=== PATIENT | male | born 1985 | race Caucasian/White ===

== ENCOUNTER 2018-01-04 20:24 | Emergency (ER) | payer SELFPAY ==
[2018-01-04] MEDS ORDERED: PREDNISONE 20 MG TABLET PO ONE (22:30)
[2018-01-04] MEDS ORDERED: AZITHROMYCIN 250 MG TABLET PO ONE (22:30)
--- NOTE | 2018-01-04 22:32 | ER Document Report ---
ED General - General Chief Complaint: Sinus Congestion Stated Complaint: SINUS INFECTION Time Seen by Provider: 01/04/18 22:00 TRAVEL OUTSIDE OF THE [place] IN LAST 30 DAYS: No - HPI Patient complains to provider of: Sinus pressure congestion cough Notes: Patient coming in with a 3-4 day history of depressive symptoms. Patient recently traveled to [place] and was exposed to his father had similar symptoms. States father improved with [id number] medications for no improvement with his symptoms. Patient denies any recent antibiotics other than traveling to [place] no other travel. Other than being around his father no sick contacts. Patient denies any other health issues. Patient with a dry cough no production. No nausea no vomiting or diarrhea no chest pain no abdominal pain patient states diffuse pressure especially on the right side of his face and the right ear - Related Data Allergies/Adverse Reactions: codeine Allergy (Verified 01/04/18 21:26) Sulfa (Sulfonamide Antibiotics) Allergy (Verified 01/04/18 21:26) Past Medical History - Social History Smoking Status: Never Smoker Chew tobacco use (# tins/day): No Frequency of alcohol use: Social Drug Abuse: None Family History: Reviewed & Not Pertinent Patient has suicidal ideation: No Patient has homicidal ideation: No Renal/ Medical History: Denies: Hx Peritoneal Dialysis Review of Systems - Review of Systems EENT: Ear pain, Sinus pressure Cardiovascular: No symptoms reported Respiratory: Cough Gastrointestinal: No symptoms reported Genitourinary: No symptoms reported Male Genitourinary: No symptoms reported Musculoskeletal: No symptoms reported Skin: No symptoms reported Hematologic/Lymphatic: No symptoms reported Neurological/Psychological: No symptoms reported -: Yes All other systems reviewed and negative Physical Exam - Vital signs Vitals: Temp Pulse BP Pulse Ox 99.6 F 108 H 124/82 98 01/04/18 20:41 01/04/18 20:41 01/04/18 20:41 01/04/18 20:41 Interpretation: Normal - General General appearance: Appears well, Alert - HEENT Head: Normocephalic, Atraumatic Eyes: Normal Conjunctiva: Normal Cornea: Normal Extraocular movements intact: Yes Pupils: PERRL Ears: Normal External canal: Normal Tympanic membrane: Retracted - Right TM retracted left normal Sinus: Other - Tenderness palpation of the right frontal Nasal: Normal Pharynx: Post nasal drainage Neck: Normal - Respiratory Respiratory status: No respiratory distress Chest status: Nontender Breath sounds: Normal Chest palpation: Normal - Cardiovascular Rhythm: Regular Heart sounds: Normal auscultation Murmur: No - Abdominal Inspection: Normal Distension: No distension Bowel sounds: Normal Tenderness: Nontender Organomegaly: No organomegaly - Back Back: Normal, Nontender - Extremities General upper extremity: Normal inspection, Nontender, Normal color, Normal ROM , Normal temperature General lower extremity: Normal inspection, Nontender, Normal color, Normal ROM , Normal temperature, Normal weight bearing. No: Madelaine's sign - Neurological Neuro grossly intact: Yes Cognition: Normal Orientation: AAOx4 [place] Coma Scale Eye Opening: Spontaneous [place] Coma Scale Verbal: Oriented Lu Coma Scale Motor: Obeys Commands [place] Coma Scale Total: 15 Speech: Normal Motor strength normal: LUE, RUE, LLE, RLE Sensory: Normal - Psychological Associated symptoms: Normal affect, Normal mood - Skin Skin Temperature: Warm Skin Moisture: Dry Skin Color: Normal Course - Re-evaluation Re-evalutation: 01/05/18 00:35 Patient symptoms are consistent with sinusitis infection. Patient recommended to take being will start patient on Z-Martir also treat patient with steroids. Patient was also encouraged to use honey for his cough. Patient states understanding will be discharged home - Vital Signs Vital signs: Temp Pulse Resp BP Pulse Ox 99.9 F 104 H 20 130/85 H 97 01/04/18 22:42 01/04/18 22:42 01/04/18 22:42 01/04/18 22:42 01/04/18 22:42 Discharge - Discharge Clinical Impression: Sinusitis Qualifiers: Sinusitis location: unspecified location Chronicity: acute Recurrence: not specified as recurrent Qualified Code(s): J01.90 - Acute sinusitis, unspecified Condition: Good Disposition: HOME, SELF-CARE Instructions: Sinusitis (OM) Additional Instructions: Examination is consistent with a sinus infection and sinusitis. Will recommend taking aortic counter allergy medication such as Claritin or Zyrtec. 2 about your cough will recommend using natural honey mixed in your favorite drink. We will treat her infection with antibiotic because Zithromax take as directed. We also withdrew congestion with a low dose of steroids for the next few days. Follow-up with her primary care physician return to the ER symptoms worsen. Prescriptions: Azithromycin 250 mg PO DAILY #4 tablet Prednisone [Deltasone 20 mg Tablet] 3 tab PO DAILY 5 Days tablet
[2018-01-04 22:48] VITALS: BP 130/85
== END 2018-01-04 22:48 | disposition home or self-care (01) ==
LOC: ER 20:24
DX: J01.90 Acute sinusitis, unspecified (principal); R05 Cough; H92.09 Otalgia, unspecified ear; R09.82 Postnasal drip; Z88.5 Allergy status to narcotic agent; Z88.2 Allergy status to sulfonamides
CPT/HCPCS: 99283; J7512

== ENCOUNTER 2019-08-06 12:36 | Emergency (ER) | payer BC ==
[2019-08-06 12:51] VITALS: BP 144/88
--- NOTE | 2019-08-06 12:52 | ER Document Report ---
ED ENT - General Chief Complaint: Sinus Pain Stated Complaint: SINUS PAIN Time Seen by Provider: 08/06/19 12:46 Primary Care Provider: ADDIE OLSON PA-C [Primary Care Provider] - Follow up as needed Mode of Arrival: Ambulatory Notes: 34-year-old male presented to ED for complaint of cough congestion sinus pressure intermittent ear pressure since the first of the month which is about 9 days ago. He is alert oriented respirations regular nonlabored speaking in full sentences. He is afebrile at this time. He states he has not had a fever. TRAVEL OUTSIDE OF THE [place] IN LAST 30 DAYS: No - HPI Patient complains to provider of: Ear problem, Nose problem, Throat problem Onset: Other - Last 9 days Quality of pain: Achy Severity: Moderate Pain Level: 2 Context: Recent Illness Location of pain: Ears, Nose, Sinus, Throat Associated symptoms: Ear pain, Runny nose, Sinus pain, Sinus drainage, Sore throat Similar symptoms previously: Yes Recently seen / treated by doctor: No - Related Data Allergies/Adverse Reactions: codeine Allergy (Verified 08/06/19 12:46) Sulfa (Sulfonamide Antibiotics) Allergy (Verified 08/06/19 12:46) Past Medical History - General Information source: Patient - Social History Smoking Status: Never Smoker Frequency of alcohol use: Social Drug Abuse: None Lives with: Family Family History: Reviewed & Not Pertinent Patient has suicidal ideation: No Patient has homicidal ideation: No - Past Medical History Cardiac Medical History: Reports: None Pulmonary Medical History: Reports: None EENT Medical History: Reports: None Neurological Medical History: Reports: None Endocrine Medical History: Reports: None Renal/ Medical History: Reports: None Malignancy Medical History: Reports None GI Medical History: Reports: None Musculoskeletal Medical History: Reports None Skin Medical History: Reports None Psychiatric Medical History: Reports: None Traumatic Medical History: Reports: None Infectious Medical History: Reports: None Surgical Hx: Negative Past Surgical History: Reports: None - Immunizations Immunizations up to date: Yes Hx Diphtheria, Pertussis, Tetanus Vaccination: Yes Review of Systems - Review of Systems Constitutional: No symptoms reported EENT: Ear pain, Nose discharge, Sinus discharge, Throat pain Cardiovascular: No symptoms reported Respiratory: No symptoms reported Gastrointestinal: No symptoms reported Genitourinary: No symptoms reported Male Genitourinary: No symptoms reported Musculoskeletal: No symptoms reported Skin: No symptoms reported Hematologic/Lymphatic: No symptoms reported Neurological/Psychological: No symptoms reported -: Yes All other systems reviewed and negative Physical Exam - Vital signs Vitals: Temp Pulse Resp BP Pulse Ox 98.0 F 87 16 148/97 H 97 08/06/19 12:41 08/06/19 12:41 08/06/19 12:41 08/06/19 12:41 08/06/19 12:41 Interpretation: Normal - General General appearance: Appears well, Alert - HEENT Head: Normocephalic, Atraumatic Eyes: Normal Pupils: PERRL Ears: Normal External canal: Normal Tympanic membrane: Normal Sinus: Normal Nasal: Purulent discharge, Swelling Pharynx: Post nasal drainage. No: Erythema, Exudate Neck: Normal - Respiratory Respiratory status: No respiratory distress Chest status: Nontender Breath sounds: Nonproductive cough Chest palpation: Normal - Cardiovascular Rhythm: Regular Heart sounds: Normal auscultation Murmur: No - Abdominal Inspection: Normal Distension: No distension Bowel sounds: Normal Tenderness: Nontender Organomegaly: No organomegaly - Back Back: Normal, Nontender - Extremities General upper extremity: Normal inspection, Nontender, Normal color, Normal ROM, Normal temperature General lower extremity: Normal inspection, Nontender, Normal color, Normal ROM, Normal temperature, Normal weight bearing. No: Madelaine's sign - Neurological Neuro grossly intact: Yes Cognition: Normal Orientation: AAOx4 Lu Coma Scale Eye Opening: Spontaneous [place] Coma Scale Verbal: Oriented [place] Coma Scale Motor: Obeys Commands Lu Coma Scale Total: 15 Speech: Normal Motor strength normal: LUE, RUE, LLE, RLE Sensory: Normal - Psychological Associated symptoms: Normal affect, Normal mood - Skin Skin Temperature: Warm Skin Moisture: Dry Skin Color: Normal Course - Re-evaluation Re-evalutation: 08/06/19 22:05 After performing a Medical Screening Examination, I estimate there is LOW risk for ACUTE CORONARY SYNDROME, RESPIRATORY FAILURE, SEPSIS OR MENINGITIS, thus I consider the discharge disposition reasonable. I have reevaluated this patient multiple times and no significant life threatening changes are noted. The patient and I have discussed the diagnosis and risks, and we agree with discharging home with close follow-up. We also discussed returning to the Emergency Department immediately if new or worsening symptoms occur. We have discussed the symptoms which are most concerning (e.g., changing or worsening pain, trouble swallowing or breathing, neck stiffness, fever) that necessitate immediate return. - Vital Signs Vital signs: Temp Pulse Resp BP Pulse Ox 98.0 F 87 16 144/88 H 97 08/06/19 12:41 08/06/19 12:41 08/06/19 12:41 08/06/19 12:58 08/06/19 12:41 Discharge - Discharge Clinical Impression: URI (upper respiratory infection) Qualifiers: URI type: unspecified viral URI Qualified Code(s): J06.9 - Acute upper respiratory infection, unspecified Condition: Stable Disposition: HOME, SELF-CARE Additional Instructions: UPPER RESPIRATORY ILLNESS: You have a viral infection of the respiratory passages -- a "cold." This common infection causes nasal congestion, drainage, and often sore throat and cough. It is highly contagious. The disease usually lasts about 10 to 14 days. There is no "cure" for the viral infection -- it must run its course. If there is a complication, such as bacterial infection in the nose, sinuses, middle ear, or bronchial tubes, antibiotics may be required. The antibiotics won't affect the virus. Drink plenty of fluids. A humidifier may help. An expectorant medication or decongestant may make you more comfortable. Use acetaminophen or ibuprofen for fever or aches. See the doctor if fever persists over two days, if there is any significant worsening of your symptoms, or if you simply fail to improve as expected. COUGH-SUPPRESSANT & EXPECTORANT MEDICATION: You are to use a cough medication as needed for relief of symptoms. This medicine is a combination of an expectorant (to make the mucous thinner and more easily "coughed up") and a cough suppressant (to reduce the frequency of coughing). The cough-suppressant medicine is related to narcotics. You may experience mild nausea and sleepiness. Some patients who are very sensitive to narcotics may have stomach pain from this medicine. Taking the medicine with food reduces these side effects. Do not drive or work with machinery until you know how this medicine affects you. The expectorant should have no side effects. Iodine-containing expectorants (such as organidin) should not be taken by persons with active thy roid disease unless approved by your doctor. Call the doctor if you develop shortness of breath, hives, rash, itching, lightheadedness, or severe nausea and vomiting. You have been recommended treatment with Claritin 10 mg Sudafed 30 mg and Mucinex 600 mg. These are all [id number] medications for cough cold congestion. You do need to call the go to the pharmacist to get the Sudafed from behind the counter please get a little red pills they are more effective. You could also use Flonase which is [id number] 1 spray each nostril twice a day. You could also use salt soda solution gargles. These will help to remove the drainage from the back your throat. Chloraseptic spray was ihoo-sir-[id number] that will also help with your sore throat. Salt and soda solution gargle 1 quart of water 1 tablespoon of salt 1 teaspoon of baking soda Mixed 3 ingredients together and boil for 1 minute Placed in a covered quart jar Use 1/2 ounce of cold solution to gargle 3 times a day USE OF ACETAMINOPHEN (Tylenol): Acetaminophen may be taken for pain relief or fever control. It's much safer than aspirin, offering a wider range of "safe" dosages. It is safe during . Some brand names are Tylenol, Panadol, Datril, Anacin 3, Tempra, and Liquiprin. Acetaminophen can be repeated every four hours. The following are maximum recommended dosages: >89 pounds or adults 650 mg to 900 mg Acetaminophen can be repeated every four hours. Maximum dose not to exceed 4000 mg a day. FOLLOW-UP CARE: If you have been referred to a physician for follow-up care, call the physicians office for an appointment as you were instructed or within the next two days. If you experience worsening or a significant change in your symptoms, notify the physician immediately or return to the Emergency Department at any time for re-evaluation. Forms: Elevated Blood Pressure, Return to Work Referrals: ADDIE OLSON PA-C [Primary Care Provider] - Follow up as needed
== END 2019-08-06 13:00 | disposition home or self-care (01) ==
LOC: ER 12:36
DX: J06.9 Acute upper respiratory infection, unspecified (principal); J34.89 Other specified disorders of nose and nasal sinuses; Z88.6 Allergy status to analgesic agent; Z88.2 Allergy status to sulfonamides
CPT/HCPCS: 99283